=== PATIENT | female | born 1985 | race Caucasian/White ===

== ENCOUNTER 2016-12-21 21:30 | Emergency (ER) | payer SELFPAY ==
--- NOTE | 2016-12-24 07:04 | ER ---
ADMIT: 12/21/2016 RM/LOC: ER [facility] MR#: [id number] [address] [facility] [address] [place], [place] [id number] SMITA TRUJILLO [address] [facility] [address] [address] Emergency Room Report SEX: F AGE: 31 : 1985 DATE: 12/21/2016 HISTORY OF PRESENT ILLNESS: A 31-year-old female, presents to the emergency room complaining of abdominal pain. She ran out of her Percocet and she states she is from [place], although she had lived in the area in the past and had seen the pain management, Dr. Myles and apparently Dr. Morelos as well. She is stating that her whole abdomen hurts. She is hunched over with pain and mostly what looks like fake tears. As I walked in the room, she was on her phone. I started talking to her and she started to produce some tears in her eyes. REVIEW OF SYSTEMS: Anxiety and depression. PAST MEDICAL HISTORY: She states she was diagnosed 2 months ago with ovarian cancer, has not gotten any followup therapy, but she has a doctor in [facility], by the name Misael. I tried to contact Dr. Douglas, he is an Internal Medicine in [place], [place], and I was unable to talk to him. In 2013, she states she had a hysterectomy and she states she has her ovaries and she does not understand how she can have ovaries and have the uterus out. MEDICATIONS: Include: 1. Percocet. 2. Celexa. 3. Xanax. SOCIAL HISTORY: She quit smoking 2 weeks ago and she did e-cigarettes. ALLERGIES: SHE IS ALLERGIC TO TORADOL, PENICILLIN, NAPROXEN AND SHE SAID TYLENOL DOES NOT DO ANYTHING FOR HER. PHYSICAL EXAMINATION: VITAL SIGNS: Blood pressure 118/77, pulse 72, respirations 14, temp 97.6, O2 sats 100%. GENERAL: Very hypersensitive to touch. ABDOMEN: As soon as I palpated the abdomen, her whole body is extremely panned. She started screaming, complaining that was pretty painful and she needed some pain medication. EMERGENCY ROOM COURSE: I advised her that we needed to do some labs and get some diagnostic views to find out what was causing that acute pain since she has not had it for a while after her diagnosis. Her last meal was an hour ago she states and she kept everything down. No nausea or vomiting. We did do a CBC with a hemoglobin of 12.3, within normal limits. Glucose was 66 with a creatinine of 0.8. Her urine is negative. Her UA does not show any pathology. However, the CT scan that I managed to do to find out if her report was true, does show stool in the proximal colon. Normal appendix, post hysterectomy, nonobstructive left renal stone. No hydronephrosis or perinephric stranding. At the time that report arrived, she decided she did not want to wait anymore as we were not giving her narcotics, she refused the ADMIT: 12/21/2016 RM/LOC: ER [facility] MR#: [id number] [facility] [address] [id number] SMITA TRUJILLO [address] [place] [id number] Emergency Room Report SEX: F AGE: 31 : 1985 Tylenol IV that I have ordered for her and diagnosed her with abdominal pain. She left AMA, and told that she would be going to another hospital for care. I did discover that her name is in narcotic abuse list and that is the reason why she was not receiving any pain medication to go home with. However, I did offer medications since she is allergic to most of the stuff that we have in the ER to give. 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 LIBRA Meza / Valeriano Licea MD / penny JOB #: [id number] CC: Valeriano Licea MD, Attending Physician Sanjay Ryan MD, Family Physician
== END 2016-12-22 00:20 | disposition left against medical advice (07) ==
LOC: ER 21:30
DX: N20.0 Calculus of kidney (principal); R10.9 Unspecified abdominal pain; Z88.0 Allergy status to penicillin; Z88.8 Allergy status to other drugs, medicaments and biological substances; Z90.710 Acquired absence of both cervix and uterus; Z79.899 Other long term (current) drug therapy